=== PATIENT | male | born 1980 | race Caucasian/White ===

== ENCOUNTER 2019-02-02 19:06 | Emergency (ER) | payer MEDICAID ==
[~2019-02-02] VITALS: Ht 180.3 cm; Wt 115.3 kg
[~2019-02-02 19:06] MED LIST: AMLO10TA8 PO; AMLO2.5T2 PO; ASPI81TA45 PO; LISI-167 PO
[2019-02-02 19:12] VITALS: BP 234/114
--- NOTE | 2019-02-02 21:03 | NUR ---
Patient/Caregiver given discharge instructions and they have confirmed that they understand the instructions. Patient ambulatory with steady gait.
== END 2019-02-02 21:04 | disposition home or self-care (01) ==
LOC: ED 19:21
DX: S62.652A Nondisplaced fracture of middle phalanx of right middle finger, initial encounter for closed fracture (principal); S62.654A Nondisplaced fracture of middle phalanx of right ring finger, initial encounter for closed fracture; I10 Essential (primary) hypertension; Z86.73 Personal history of transient ischemic attack (TIA), and cerebral infarction without residual deficits; W18.30XA Fall on same level, unspecified, initial encounter; Y93.89 Activity, other specified; Y92.410 Unspecified street and highway as the place of occurrence of the external cause; Y99.8 Other external cause status
CPT/HCPCS: 29130; 93005; 99283

== ENCOUNTER 2020-12-23 11:12 | Emergency (ER) | payer MEDICAID ==
[~2020-12-23] VITALS: Ht 172.7 cm; Wt 102.8 kg
[~2020-12-23 11:12] MED LIST changes: +AMLO-211 PO; -AMLO10TA8 PO
--- NOTE | 2020-12-23 11:44 | NUR ---
PT PRESENTS TO ED WITH C/O LACERATION TO R POINTER FINGER. PT STATES THEY WERE PULLING A WIRE IN ATTIC WHEN HAND SLIPPES AND CAUGHT ON A NAIL, CAUSING A DEEP LACERATION APPROXIMATELY 1 CM LONG. BLEEDING PRESENT BUT CONTROLLED WITH GAUZE. PT A&O, RESPS EVEN AND UNLABORED, EZRA PINTO. AT BEDSIDE, CALL LIGHT IN REACH.
[2020-12-23] MEDS ORDERED: LIDOCAINE-MPF 1%, 5ML ONE (11:48)
[2020-12-23] MEDS ORDERED: LIDOCAINE-MPF 1%, 5ML INFIL ONE (12:00)
[2020-12-23] MEDS ORDERED: NEOSPORIN OINT. PKT 1 PACKET ONE ×2 (13:02→13:07)
[2020-12-23 13:14] VITALS: BP 130/72
--- NOTE | 2020-12-23 13:15 | NUR ---
preceptor RN note: pt confirms last tetanus was <5 yrs ago. wound sutured by ONOFRE [place]le[place], dressed and splinted by EDT. cms intact. pt a&o, resps even and unlabored, nadn. pt given dc insructions, ambulatory to dc desk with steady gait, all questions answered.
== END 2020-12-23 13:16 | disposition home or self-care (01) ==
LOC: ED 13:13
DX: S61.210A Laceration without foreign body of right index finger without damage to nail, initial encounter (principal); I10 Essential (primary) hypertension; Z86.73 Personal history of transient ischemic attack (TIA), and cerebral infarction without residual deficits; X58.XXXA Exposure to other specified factors, initial encounter; Y93.89 Activity, other specified; Y92.009 Unspecified place in unspecified non-institutional (private) residence as the place of occurrence of the external cause; Y99.8 Other external cause status
CPT/HCPCS: 12042; 99284